=== PATIENT | female | born 1960 | race Caucasian/White ===

== ENCOUNTER 2019-07-10 08:04 | Outpatient (CLI) | payer SELFPAY ==
--- NOTE | 2019-07-10 08:00 | MR_ITS ---
WS: [id number] MRI CERVICAL SPINE HISTORY: Cervical pain COMPARISON: 09/24/2018 Posterior cervical alignment is normal. There is mild disc desiccation and narrowing at C5-6 and C6-7 . No marrow edema or fracture. Signal within the cervical cord is normal. Visualized posterior fossa is unremarkable. Craniocervical junction, C1 and C2 relationship, odontoid process and soft tissues are normal. C2-C3: Normal. C3-C4: Normal. C4-C5: Minimal osteophytic ridging and annular disc bulging. No disc protrusions are identified today . C5-C6: Mild osteophytic ridging and disc bulging. Very mild encroachment upon the ventral cord and fo ramen. Mild bilateral foraminal stenosis. No cord contact. C6-C7: Broad-based LEFT paracentral disc protrusion. There are are also minimal paravertebral osteoph ytes. C7-T1: Normal. Paraspinal soft tissue are normal. MR/MR cervical spin wo con* [id number] IMPRESSION: 1. No significant central or foraminal stenosis. No progression of cervical di sease since 09/24/2018. 2. Mild bilateral foraminal narrowing at C5-C6 due to disc bulging and osteoph ytosis. 3. Broad-based LEFT paracentral disc protrusion at C6-[address] enosis.
== END 2019-07-10 08:05 | disposition home or self-care (01) ==
PROVIDERS: Family Provider Nurse Practitioner Family; Visit Provider Licensed Practical Nurse
DX: M50.223 Other cervical disc displacement at C6-C7 level (principal)
CPT/HCPCS: 72141

== ENCOUNTER 2019-07-10 09:23 | Outpatient (CLI) | payer SELFPAY ==
--- NOTE | 2019-07-10 09:30 | XR_ITS ---
WS: [id number] CERVICAL SPINE FLEXION EXTENSION TECHNIQUE: 3 views of the cervical spine: lateral neutral, flexion and extension views. CLINICAL INFORMATION: cervical spine pain COMPARISON: [id number] FINDINGS: Straightening of the normal cervical lordosis. Disc space narrowing worse at C5-6 with anterior hyper trophic changes. Normal prevertebral soft tissues. No instability on flexion-extension. Posterior elements are normal. No other significant findings. XR/XR cervical spine fl/ex [id number] IMPRESSION: 1. Straightening of the normal cervical lordosis. No instability on flexion-ex tension. 2. Disc space narrowing worse at C5-C6. 3. No significant interval changes from previous.
== END 2019-07-10 09:24 | disposition home or self-care (01) ==
PROVIDERS: Family Provider Nurse Practitioner Family; PCP Nurse Practitioner Family; Visit Provider Licensed Practical Nurse
DX: M54.2 Cervicalgia (principal)
CPT/HCPCS: 72040

== ENCOUNTER 2019-09-02 09:27 | Outpatient (CLI) | payer SELFPAY ==
--- NOTE | 2019-09-02 10:00 | IR_ITS ---
WS: [id number] Cervical myelogram, 09/02/2019 Clinical Data: cervical pain Comparison: Cervical spine, 07/10/2019. Fluoroscopy time: minutes. Findings: The patient's back was cleansed with iodine. Then 5 mL of 1% Xylocaine were hand injected into the sk in and subcutaneous tissue of the back by a 30 gauge needle. With the usual technique, a 23 gauge spi nal needle was inserted into the lumbar subarachnoid space at L2-L3. Clear spinal fluid appeared at t he needle hub. The contrast material was hand injected with approximately 15 mL of 300 mg/mL Omnipaqu e into the lumbar subarachnoid space. The patient was placed into a headdown position and the contras t material flowed normally into the cervical subarachnoid space. The cervical spinal cord is normal in size. No intramedullary or intradural defects were seen. There is minimal posterior impingement onto the cervical subarachnoid space at C5-C6. Flexion, extension and neutral lateral views demonstrated no limitations of motion or subluxation. There is degenerative disc narrowing at C5-C6 with anterior and posterior osteophyte formation. IR/IR myelogram sp cervical [id number] Impression: 1. Minimal posterior impingement onto the anterior cervical spine spinal cord a t C5-C6. 2. Degenerative disc narrowing and osteophyte formation anteriorly and posterio rly at C5-C6. 3. No subluxation or limitation of motion on flexion or extension is seen.
[2019-09-02 11:29] VITALS: BMI 28.5
--- NOTE | 2019-09-02 11:30 | CT_ITS ---
WS: [id number] CT cervical spine. Additional two-dimensional coronal and sagittal reconstruction was performed. 09/01 Clinical Data: cervical pain Comparison: MRI cervical spine, 07/10/2019. DLP: 513.[address] scans at [facility] use at least one of these dose optimization techniques: automat ed exposure control; mA and/or kV adjustment per patient size (includes targeted exams where dose is matched to clinical indication); or iterative reconstruction. Findings: There is myelographic contrast within the cervical subarachnoid space. No compression fractures are seen. There is disc space narrowing at C5-C6. Minimal osteoarthritic spu rring anteriorly and posteriorly at C5-C6 is seen. The spinous processes are in good alignment. The odontoid is unremarkable. There is no prevertebral soft tissue swelling. The soft tissues of the cerv ical spine in the lung apices are not remarkable. C2-C3: No disc bulge, canal stenosis or foraminal stenosis is seen. C3-C4: No disc bulge, canal stenosis or foraminal stenosis is seen. C4-C5: No disc bulge, canal stenosis or foraminal stenosis is seen. C5-C6: Animal posterior osteoarthritic spurring impinges onto the anterior spinal canal. The facet yariel ints are normal. C6-C7: There is a broad-based disc protrusion which is central and left paracentral. C7-T1: No disc bulge, canal stenosis or foraminal stenosis is seen. CT/CT cervical spine w con [id number] Impression: 1. Degenerative disc narrowing at C5-C6. 2. Posterior osteoarthritic spurring impinging on the anterior spinal canal at C5-C6. 3. Broad-based disc protrusion which is central and left paracentral at C6-C7.
[2019-09-02 11:31] VITALS: BP 109/66; PULSE 73; RESP 16; TEMP 36.6; O2SAT 94
[2019-09-02] MEDS: iohexol 300 mg/mL 50 mL Btl INTRATHECA (12:12)
[2019-09-02 12:17] VITALS: BP 114/68; PULSE 86; RESP 16; O2SAT 96
== END 2019-09-02 09:28 | disposition home or self-care (01) ==
LOC: RAD 09:31
PROVIDERS: Family Provider Nurse Practitioner Family; PCP Nurse Practitioner Family; Visit Provider Specialist
DX: M50.223 Other cervical disc displacement at C6-C7 level (principal); M47.892 Other spondylosis, cervical region
CPT/HCPCS: 62302; 72040; 72126; Q9967